=== PATIENT | male | born 1935 | race Caucasian/White ===

== ENCOUNTER 2017-02-13 14:27 | Emergency (ER) | payer MEDICARE ==
[~2017-02-13] VITALS: Ht 185.4 cm; Wt 93.0 kg
[2017-02-13 14:30] VITALS: O2SAT 100
[2017-02-13 14:36] VITALS: BP 133/75; PULSE 54; RESP 20; TEMP 97.4; O2SAT 100
--- NOTE | 2017-02-13 14:42 | PD ---
HPI Chief Complaint: Chest Pain Time Seen by Provider: 14:37 Travel History International Travel<30 days: No Contact w/Intl Traveler<30days: No Traveled to known affect area: No History of Present Illness HPI Patient presents with complaints of left shoulder and left arm pain. Denies any trauma misstep or fall. Denies any chest pressure. Denies diabetes. Denies tobacco use. Denies diaphoresis or shortness of breath. Positive history for coronary artery disease. Positive family history for cardiac disease. Onset one hour prior to arrival. Constant in nature. Aggravated by turning his head right. PFSH Past Medical History Hx Anticoagulant Therapy: Yes (ASA) Cardiovascular Problems: Yes Social History Tobacco Use: No Allergies-Medications (Allergen,Severity, Reaction): Coded Allergies: Levaquin (Verified Allergy, Unknown, RASH, 02/13/17) Penicillin (Verified Allergy, Unknown, RASH, 02/13/17) Reported Meds & Prescriptions Reported Meds & Active Scripts Active Reported Vitamin B-12 (Cyanocobalamin) 1,000 Mcg Tab 1,000 Mcg PO QOD Fish Oil ([place]-3 Fatty Acids) 1,000 Mg Cap 1 Tab PO QOD Aspirin 81 (Aspirin) 81 Mg Tabdr 81 Mg PO DAILY Isosorbide Mononitrate ER (Isosorbide Mononitrate) 30 Mg Celestino 30 Mg PO DAILY Metoprolol Tartrate 25 Mg Tab 25 Mg PO DAILY Ranexa ER 12 HR (Ranolazine) 500 Mg Tab 500 Mg PO BID Crestor (Rosuvastatin Calcium) 20 Mg Tab 20 Mg PO DAILY Review of Systems General / Constitutional: No: Fever Eyes: No: Visual changes HENT: No: Headaches Cardiovascular: Positive: Chest Pain or Discomfort Respiratory: No: Shortness of Breath Gastrointestinal: No: Abdominal Pain Genitourinary: No: Dysuria Musculoskeletal: No: Pain Skin: No Rash Neurologic: No: Weakness Psychiatric: No: Depression Endocrine: No: Polydipsia Hematologic/Lymphatic: No: Easy Bruising Physical Exam Narrative GENERAL: Well-nourished, well-developed patient. SKIN: Focused skin assessment warm/dry. HEAD: Normocephalic. EYES: No scleral icterus. No injection or drainage. NECK: Supple, trachea midline. No JVD or lymphadenopathy. CARDIOVASCULAR: Regular rate and rhythm without murmurs, gallops, or rubs. RESPIRATORY: Breath sounds equal bilaterally. No accessory muscle use. GASTROINTESTINAL: Abdomen soft, non-tender, nondistended. MUSCULOSKELETAL: No cyanosis, or edema. BACK: Nontender without obvious deformity. No CVA tenderness. Examination left shoulder reveals no pain on range of motion. When turning his head to the right pain is reproducible in his posterior left shoulder Data Data Last Documented VS Vital Signs Date Time Temp Pulse Resp B/P Pulse Ox O2 Delivery O2 Flow Rate FiO2 02/13/17 15:02 53 18 109/68 98 Nasal Cannula 2 116/66 02/13/17 14:36 97.4 Orders Electrocardiogram (02/13/17 14:37) Basic Metabolic Panel (Bmp) (02/13/17 14:37) Ckmb (Isoenzyme) Profile (02/13/17 14:37) Comprehensive Metabolic Panel (02/13/17 14:37) Magnesium (Mg) (02/13/17 14:37) Prothrombin Time / Inr (Pt) (02/13/17 14:37) Act Partial Throm Time (Ptt) (02/13/17 14:37) Troponin I (02/13/17 14:37) Chest, Single Ap (02/13/17 14:37) Ecg Monitoring (02/13/17 14:37) Bilateral Bp Monitoring (02/13/17 14:37) Iv Access Insert/Monitor (02/13/17 14:37) Oximetry (02/13/17 14:37) Oxygen Administration (02/13/17 14:37) Aspirin (Aspirin) (02/13/17 14:45) Sodium Chloride 0.9% Flush (Ns Flush) (02/13/17 14:45) CKMB (02/13/17 14:38) CKMB% (02/13/17 14:38) Labs Laboratory Tests Test 02/13/17 14:38 Prothrombin Time 10.6 SEC Prothromb Time International 1.0 RATIO Ratio Activated Partial 24.0 SEC Thromboplast Time Sodium Level 143 MEQ/L Potassium Level 3.7 MEQ/L Chloride Level 108 MEQ/L Carbon Dioxide Level 28.0 MEQ/L Anion Gap 7 MEQ/L Blood Urea Nitrogen 17 MG/DL Creatinine 1.30 MG/DL Estimat Glomerular Filtration 53 ML/MIN Rate Random Glucose 110 MG/DL Calcium Level 8.5 MG/DL Magnesium Level 2.0 MG/DL Total Bilirubin 0.6 MG/DL Aspartate Amino Transf 16 U/L (AST/SGOT) Alanine Aminotransferase 22 U/L (ALT/SGPT) Alkaline Phosphatase 61 U/L Total Creatine Kinase 120 U/L Creatine Kinase MB 1.9 NG/ML Troponin I LESS THAN 0.02 NG/ML Total Protein 6.6 GM/DL Albumin 3.5 GM/DL MDM Medical Decision Making Medical Screen Exam Complete: Yes Emergency Medical Condition: Yes Differential Diagnosis ACS, left shoulder osteoarthritis, left trapezius strain Narrative Course Assessment and plan discussed with patient and at bedside. EKG reveals sinus bradycardia rate of 59. Diagnosis Primary Impression: Osteoarthritis of left shoulder Qualified Code: M19.012 - Osteoarthritis of left shoulder, unspecified osteoarthritis type Patient Instructions: General Instructions Additional Instructions: Encourage nonsteroidal anti-inflammatories and general range of motion exercises. Consider sling for comfort. Follow up with PCP. Return to emergency room with any new onset of symptoms Med/Other Pt SpecificInfo: No Meds Exist/No RX given Disposition: 01 DISCHARGE HOME Condition: Good Danie Amezquita MD Feb 13, 2017 14:42
[2017-02-13] MEDS ORDERED: SODIUM CHLORIDE 0.9% FLUSH 10 ML FLUSH IVF PRN (14:45)
[2017-02-13] MEDS ORDERED: ASPIRIN 325 MG TAB PO ONE (14:45)
[2017-02-13 14:54] LABS: CHLORIDE 108 MEQ/L (98-107); POTASSIUM 3.7 MEQ/L (3.5-5.1); SODIUM (NA) 143 MEQ/L (136-145)
[2017-02-13 14:58] LABS: ANION GAP 7 MEQ/L (5-15); BLOOD UREA NITROGEN 17 MG/DL (7-18)
[2017-02-13] MEDS ORDERED: FISH1000 PO (14:58)
[2017-02-13] MEDS ORDERED: METO25TA3 PO (14:58)
[2017-02-13] MEDS ORDERED: ASPI-110 PO (14:58)
[2017-02-13] MEDS ORDERED: VITA10002 PO (14:58)
[2017-02-13] MEDS ORDERED: ISOS30TA3 PO (14:58)
[2017-02-13] MEDS ORDERED: ROSU20 PO (14:58)
[2017-02-13] MEDS ORDERED: RANO500 PO (14:58)
[2017-02-13 15:00] LABS: PROTHROMBIN TIME - PATIENT 10.6 SEC (9.8-11.6)
[2017-02-13 15:01] LABS: ALT (GPT) 22 U/L (12-78); AST (GOT) 16 U/L (15-37); GLOMERULAR FILTRATION RATE 53 ML/MIN (>89)
[2017-02-13 15:02] VITALS: BP_SYST 109; BP_SYST 116; BP_DIAS 66; BP_DIAS 68; PULSE 53; RESP 18; O2SAT 98
[2017-02-13 15:03] LABS: TOTAL BILIRUBIN ADULT 0.6 MG/DL (0.2-1.0)
[2017-02-13 15:04] LABS: ALKALINE PHOSPHATASE 61 U/L (45-117); CREATINE KINASE 120 U/L (39-308)
--- NOTE | 2017-02-13 15:05 | RADHPO ---
EXAM DATE/TIME: 02/13/2017 14:55 [facility] COMPARISON: No previous studies available for comparison. INDICATIONS : Left side upper chest and left arm, shoulder pain MEDICAL HISTORY : None. SURGICAL HISTORY : None. ENCOUNTER: Initial ACUITY: 3 days PAIN SCORE: 8/10 LOCATION: Left upper chest FINDINGS: A single view of the chest demonstrates the lungs to be symmetrically aerated without evidence of mas s, infiltrate or effusion. The cardiomediastinal contours are unremarkable. Osseous structures are intact. CONCLUSION: No evidence of acute cardiopulmonary disease. Teto Goldberg MD on February 13, 2017 at 15:03 Board Certified Radiologist. This report was verified electronically.
[2017-02-13 15:16] LABS: CKMB 1.9 NG/ML (0.5-3.6)
[2017-02-13 15:47] VITALS: BP 109/68
--- NOTE | 2017-02-14 11:17 | EKG ---
Date Performed: 02/13/2017 Time Performed: 14:25:38 PTAGE: 81 years EKG: Sinus bradycardia. Possible left anterior fascicular block Borderline ECG NO PREVIOUS TRACING DOCTOR: Jordon Freire Interpretating Date/Time 02/14/2017 11:14:34
== END 2017-02-13 15:49 | disposition home or self-care (01) ==
LOC: PHED 14:27
DX: M19.012 Primary osteoarthritis, left shoulder (principal); R00.1 Bradycardia, unspecified; R07.9 Chest pain, unspecified; Z79.01 Long term (current) use of anticoagulants
CPT/HCPCS: 71010; 80053; 82550; 82552; 83735; 84484; 85610; 85730; 93005; 99285